=== PATIENT | female | born 1935 | race Hispanic/Latino ===

== ENCOUNTER → 2019-08-23 | Outpatient (CLI) | payer OTHER, MEDICARE ==
[~2019-08-23] MED LIST: ASPI-1181 PO; CARV6.25 PO; CHOL500050 PO; CLOP75TA32 PO; FOLI1TAB85 PO; GABA-529 PO; METF-446 PO; MIRA50TA PO; NITR50CA50 PO; PANT40TA25 PO; POTA10TA14 PO; SERT50TA12 PO; SIMV-46 PO; TORS100T16 PO; TYL3 PO
== END | disposition home or self-care (01) ==
LOC: SHCH 12:52
PROVIDERS: ATTEND Internal Medicine Cardiovascular Disease
DX: I51.7 Cardiomegaly (principal); I25.10 Atherosclerotic heart disease of native coronary artery without angina pectoris
CPT/HCPCS: 93306; 93356

== ENCOUNTER → 2019-08-23 | Outpatient (CLI) | payer OTHER, MEDICARE | END | disposition home or self-care (01) | LOC: SLP 20:14 | PROVIDERS: ATTEND Internal Medicine Cardiovascular Disease | DX: G47.33 Obstructive sleep apnea (adult) (pediatric) (principal); G47.39 Other sleep apnea; I51.7 Cardiomegaly | CPT/HCPCS: 93306; 93356; 95810 ==

== ENCOUNTER → 2019-08-31 | Outpatient (CLI) | payer OTHER, MEDICARE | END | disposition home or self-care (01) | LOC: SLP 20:15 | PROVIDERS: ATTEND Internal Medicine Cardiovascular Disease | DX: G47.33 Obstructive sleep apnea (adult) (pediatric) (principal); I10 Essential (primary) hypertension; E11.9 Type 2 diabetes mellitus without complications | CPT/HCPCS: 95811 ==